=== PATIENT | male | born 1985 | race African-American/Black ===

== ENCOUNTER 2023-12-18 16:29 | Inpatient (IN) | payer OTHER ==
[2023-12-18 17:32] VITALS: BMI 25.1
[2023-12-18] MEDS ORDERED: ACETAMINOPHEN 325 MG TABLET (FP) PO PRN (17:53)
[2023-12-18] MEDS ORDERED: BENZOCAINE/MENTHOL (CHLORASEPTIC ) LOZENGE MM PRN (17:53)
[2023-12-18] MEDS ORDERED: BISMUTH SUBSALICYLATE 524 MG/30 ML PO PRN (17:53)
[2023-12-18] MEDS ORDERED: guaiFENesin 600 MG TABLET.ER (FP) PO PRN (17:53)
[2023-12-18] MEDS ORDERED: NALOXONE HCL 0.4 MG/ML VIAL IM PRN (17:53)
[2023-12-18] MEDS ORDERED: BENZONATATE 200 MG CAPSULE PO PRN (17:53)
[2023-12-18] MEDS ORDERED: ONDANSETRON *ODT* 4 MG TABLET SL PRN (17:53)
[2023-12-18] MEDS ORDERED: MAG HYDROX/AL HYDROX/SIMETH 30 ML UNIT-DOSE CUP PO PRN (17:53)
[2023-12-18] MEDS ORDERED: chlordiazePOXIDE HCL 25 MG CAPSULE PO PRN (17:53)
[2023-12-18] MEDS ORDERED: NALOXONE (NARCAN) HCL 4 MG/0.1 ML SPRAY NS PRN (17:53)
[2023-12-18] MEDS ORDERED: IBUPROFEN 400 MG TABLET (FP) PO PRN (17:53)
[2023-12-18] MEDS ORDERED: LOPERAMIDE HCL 2 MG CAPSULE PO PRN (17:53)
[2023-12-18] MEDS ORDERED: DICYCLOMINE HCL 10 MG CAPSULE PO PRN (17:53)
[2023-12-18] MEDS: CEPHALEXIN MONOHYDRATE 500 MG CAPSULE (UD) PO SCH (18:49)
[2023-12-18] MEDS: chlordiazePOXIDE HCL 25 MG CAPSULE PO SCH (22:21)
[2023-12-18] MEDS: METHOCARBAMOL 500 MG TABLET PO PRN (22:21)
[2023-12-18] MEDS: THIAMINE 100 MG TABLET PO SCH (22:21)
[2023-12-18] MEDS: hydrOXYzine PAMOATE 25 MG CAPSULE (FP) PO PRN (22:21)
[2023-12-18] MEDS: MELATONIN 5 MG TABLETS PO SCH (22:21)
[2023-12-18] MEDS: CEPHALEXIN MONOHYDRATE 500 MG CAPSULE (UD) PO ONE (22:21)
[2023-12-19] MEDS: CEPHALEXIN MONOHYDRATE 500 MG CAPSULE (UD) PO SCH (05:31)
[2023-12-19 09:31] LABS: CHLORIDE 108 mmol/L (98-107); POTASSIUM 4.1 mmol/L (3.5-5.1); SODIUM 140 mmol/L (136-145)
[2023-12-19 09:32] LABS: HEMATOCRIT 38.1 % (35.4-49); HEMOGLOBIN 12.2 GM/dL (11.7-16.9); MCH 24.3 pg (25.7-33.7); MCHC 32.1 g/dl (32.0-35.9); MEAN CELL VOLUME 75.6 fl (80-96); MEAN PLT VOLUME 9.6 fl (7.5-11.1); PLATELET COUNT 222 10^3/uL (134-434); RBC 5.04 M/mm3 (4.00-5.60); RDW 16.1 % (11.9-15.9); WHITE BLOOD COUNT 7.3 K/mm3 (4.0-10.0)
[2023-12-19 09:39] LABS: ALBUMIN 2.7 g/dl (3.4-5.0); BLOOD UREA NITROGEN 11.3 mg/dL (7-18)
[2023-12-19 09:40] LABS: ANION GAP 6 mmol/L (4-13); CO2 27 mmol/L (21-32); GLUCOSE,RANDOM 94 mg/dL (74-106)
[2023-12-19 09:42] LABS: CREATININE 0.8 mg/dL (0.55-1.3); SGOT/AST 19 U/L (15-37); SGPT/ALT 30 U/L (13-61)
[2023-12-19 09:44] LABS: TOT PROT 6.2 g/dl (6.4-8.2)
[2023-12-19 09:45] LABS: ALK PHOS 105 U/L (45-117)
[2023-12-19 09:51] LABS: BILIRUBIN,TOTAL 0.2 mg/dL (0.2-1)
[2023-12-19] MEDS: PRENATAL VITAMINS W/ FOLIC ACID TABLET (FP) PO SCH (10:02)
[2023-12-20] MEDS: chlordiazePOXIDE HCL 25 MG CAPSULE PO SCH (05:13)
[2023-12-20] MEDS: MAGNESIUM HYDROX 2400MG/30ML ORAL SUSPENSION 30 ML CUP PO PRN (15:03)
[2023-12-20] MEDS: POLYETHYLENE GLYCOL (HEALTHYLAX) 3350 17 GM PACKET PO PRN (16:47)
[2023-12-20] MEDS: IBUPROFEN 600 MG TABLET (FP) PO PRN (17:30)
[2023-12-21] MEDS ORDERED: chlordiazePOXIDE HCL 10 MG CAPSULE PO PRN
[2023-12-21] MEDS: chlordiazePOXIDE HCL 10 MG CAPSULE PO SCH (05:47)
[2023-12-21] MEDS: BACITRACIN 0.9 GM PACKET TP SCH (11:58)
[2023-12-22] MEDS: chlordiazePOXIDE HCL 10 MG CAPSULE PO SCH (05:54)
[2023-12-23] MEDS: chlordiazePOXIDE HCL 10 MG CAPSULE PO ONE (05:40)
[2023-12-25 09:17] VITALS: TEMP 97.8
[2023-12-25 12:49] VITALS: BP 116/68; PULSE 63; RESP 16
== END 2023-12-25 14:47 | disposition home or self-care (01) | DRG 774 ==
LOC: YASAS 16:29 → Y3N 18:19
PROVIDERS: ADMIT Allergy & Immunology; ATTEND Surgery
PROC: HZ2ZZZZ Detoxification Services for Substance Abuse Treatment (ICD-10-PCS; principal; 2023-12-18)
DX: F10.230 Alcohol dependence with withdrawal, uncomplicated (principal); F14.20 Cocaine dependence, uncomplicated; F12.20 Cannabis dependence, uncomplicated; F17.210 Nicotine dependence, cigarettes, uncomplicated; F19.94 Other psychoactive substance use, unspecified with psychoactive substance-induced mood disorder; I10 Essential (primary) hypertension; E11.9 Type 2 diabetes mellitus without complications; E78.5 Hyperlipidemia, unspecified; I25.10 Atherosclerotic heart disease of native coronary artery without angina pectoris; S61.402D Unspecified open wound of left hand, subsequent encounter; Z91.148 Patient's other noncompliance with medication regimen for other reason; Z86.19 Personal history of other infectious and parasitic diseases; Z56.0 Unemployment, unspecified; Z59.00 Homelessness unspecified
CPT/HCPCS: 36415; 80053; 80305; 80307; 85027; 86780; 93005; 93010

== ENCOUNTER 2024-11-13 14:53 | Inpatient (IN) | payer OTHER ==
[2024-11-13 15:51] VITALS: BMI 26.4
[2024-11-13] MEDS ORDERED: MAGNESIUM HYDROX 2400MG/30ML ORAL SUSPENSION 30 ML CUP PO PRN (16:01)
[2024-11-13] MEDS ORDERED: NICOTINE POLACRILEX 2 MG GUM BUC PRN (16:01)
[2024-11-13] MEDS ORDERED: POLYETHYLENE GLYCOL (HEALTHYLAX) 3350 17 GM PACKET PO PRN (16:01)
[2024-11-13] MEDS ORDERED: BENZOCAINE/MENTHOL (CHLORASEPTIC ) LOZENGE MM PRN (16:01)
[2024-11-13] MEDS ORDERED: IBUPROFEN 400 MG TABLET (FP) PO PRN (16:01)
[2024-11-13] MEDS ORDERED: hydrOXYzine PAMOATE 25 MG CAPSULE (FP) PO PRN (16:01)
[2024-11-13] MEDS ORDERED: NALOXONE (NARCAN) HCL 4 MG/0.1 ML SPRAY NS PRN (16:01)
[2024-11-13] MEDS ORDERED: MAG HYDROX/AL HYDROX/SIMETH 30 ML UNIT-DOSE CUP PO PRN (16:01)
[2024-11-13] MEDS ORDERED: ACETAMINOPHEN 325 MG TABLET (FP) PO PRN (16:01)
[2024-11-13] MEDS ORDERED: IBUPROFEN 600 MG TABLET (FP) PO PRN (16:01)
[2024-11-13] MEDS ORDERED: LOPERAMIDE HCL 2 MG CAPSULE PO PRN (16:01)
[2024-11-13] MEDS ORDERED: guaiFENesin 600 MG TABLET.ER (FP) PO PRN (16:01)
[2024-11-13] MEDS: THIAMINE 100 MG TABLET PO SCH (21:17)
[2024-11-13] MEDS: MELATONIN 5 MG TABLETS PO SCH (21:17)
[2024-11-13] MEDS: MIRTAZAPINE 15 MG TABLET (FP) PO SCH (21:18)
[2024-11-13] MEDS: GABAPENTIN 300 MG CAPSULE PO SCH (21:18)
[2024-11-13] MEDS ORDERED: TUBERCULIN PPD 5 TU/0.1ML VIAL ID ONE ×2 (21:37→22:46)
[2024-11-13] MEDS: TUBERCULIN PPD 5 TU/0.1ML SYRINGE (IN PATIENT USE ONLY) ID ONE (21:56)
[2024-11-13] MEDS ORDERED: ACAMPROSATE CALCIUM 333 MG TABLET.DR PO SCH (22:00)
[2024-11-14] MEDS: PRENATAL VITAMINS W/ FOLIC ACID TABLET (FP) PO SCH (10:31)
[2024-11-14] MEDS: MUPIROCIN 2% TOPICAL OINTMENT 22 GM TUBE TP SCH (10:31)
[2024-11-14 11:12] LABS: MCHC 30.8 g/dl (32.3-36.5); MEAN CELL VOLUME 76.9 fl (79.0-92.2); MEAN PLT VOLUME 12.4 fl (9.4-12.4); RDW 16.1 % (12.1-15.9)
[2024-11-14 11:35] LABS: CO2 27 mmol/L (21-32); GLUCOSE,RANDOM 99 mg/dL (74-106)
[2024-11-14 11:37] LABS: CREATININE 0.9 mg/dL (0.55-1.3); SGPT/ALT 26 U/L (13-61)
[2024-11-14 11:38] LABS: SGOT/AST 20 U/L (15-37)
[2024-11-14 11:39] LABS: TOT PROT 6.9 g/dl (6.4-8.2)
[2024-11-14 11:40] LABS: ALK PHOS 96 U/L (45-117)
[2024-11-14 12:30] LABS: SYPHILIS W/ RPR CONF NON-REACTIVE (NONREACTIVE)
[2024-11-14 12:59] LABS: HCV DIAGNOSTIC IN-HOUSE W/RFLX NON-REACTIVE (NONREACTIVE)
[2024-11-15] MEDS ORDERED: BENZONATATE 200 MG CAPSULE PO PRN (11:28)
[2024-11-15] MEDS ORDERED: guaiFENesin 600 MG TABLET.ER (FP) PO PRN (11:28)
[2024-11-15] MEDS: AMOX TR/POT CLAV 875MG/125MG TABLETS (FP) PO SCH (12:07)
[2024-11-15] MEDS: BENZONATATE 200 MG CAPSULE PO PRN (12:07)
[2024-11-15] MEDS ORDERED: AMOX TR/POT CLAV 875MG/125MG TABLETS (FP) PO SCH (17:30)
[2024-11-16] MEDS: AMOX TR/POT CLAV 875MG/125MG TABLETS (FP) PO SCH (07:27)
[2024-11-18 06:34] VITALS: RESP 20
[2024-11-19 06:26] VITALS: BP 116/76; PULSE 75; TEMP 97.8
== END 2024-11-19 15:36 | disposition home or self-care (01) | DRG 772 ==
LOC: YASAS 14:53 → Y3E 20:03
PROVIDERS: ADMIT Psychiatry & Neurology Pain Medicine; ATTEND Psychiatry & Neurology Pain Medicine
PROC: HZ42ZZZ Group Counseling for Substance Abuse Treatment, Cognitive-Behavioral (ICD-10-PCS; principal; 2024-11-13)
DX: F12.20 Cannabis dependence, uncomplicated (principal); F14.20 Cocaine dependence, uncomplicated; F10.20 Alcohol dependence, uncomplicated; J18.9 Pneumonia, unspecified organism
CPT/HCPCS: 36415; 71046-TC-FY; 80053; 80305; 80307; 85027; 86780; 86803; 87637-QW; 87811; 93005; 93010